=== PATIENT | male | born 1955 | race Caucasian/White ===

== ENCOUNTER → 2023-05-22 | Outpatient (CLI) | payer BC, MEDICARE | LOC: M WUC 13:10 | DX: M25.551 Pain in right hip (principal); G89.29 Other chronic pain ==

== ENCOUNTER → 2024-04-21 | Outpatient (CLI) | payer MEDICARE | LOC: M WUC 09:25 | PROVIDERS: ATTEND Student in an Organized Health Care Education/Training Program | DX: M79.604 Pain in right leg (principal) ==